=== PATIENT | male | born 1975 | race American Indian/Alaskan Native ===

== ENCOUNTER 2019-05-17 17:01 | Emergency (ER) | payer SELFPAY ==
[2019-05-17 17:32] VITALS: BP 103/67
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
== END 2019-05-17 19:35 | disposition home or self-care (01) ==
LOC: ED 17:01
DX: M54.5 Low back pain (principal); Z53.21 Procedure and treatment not carried out due to patient leaving prior to being seen by health care provider
CPT/HCPCS: 72100

== ENCOUNTER 2019-06-26 09:27 | Emergency (ER) | payer SELFPAY ==
--- NOTE | 2019-06-26 15:12 | Emergency Department Report ---
<DEN RANGEL - Last Filed: 06/26/19 15:57> ED General Adult HPI - General Chief complaint: Upper Respiratory Infection Stated complaint: CHEST PAIN/VOMIT/STOMACH PAIN Source: patient Mode of arrival: Ambulatory Limitations: No Limitations - History of Present Illness Initial comments: 44yo BM states that has been experiencing weakness, diarrhea, congestion and cough x 1 day. He further states that he has R lower back pain when coughs. Pt states that his niece has been sick with similar symptoms recently. -: Sudden Location: head, chest, abdomen Radiation: back Severity scale (0 -10): 6 Quality: aching Consistency: constant Improves with: none Worsens with: none Associated Symptoms: malaise Treatments Prior to Arrival: none - Related Data Previous Rx's Medication Instructions Recorded Last Taken Type Benzonatate [Tessalon Perles] 100 mg PO Q8HR PRN #20 capsule 06/26/19 Unknown Rx Ibuprofen [Motrin] 600 mg PO Q8H PRN #20 tablet 06/26/19 Unknown Rx Oseltamivir [Tamiflu] 75 mg PO BID #14 cap 06/26/19 Unknown Rx Allergies Allergy/AdvReac Type Severity Reaction Status Date / Time No Known Allergies Allergy Unverified 05/17/19 17:06 ED Review of Systems Comment: All other systems reviewed and negative Constitutional: see HPI Respiratory: see HPI Gastrointestinal: as per HPI ED Past Medical Hx - Past Medical History Previous Medical History?: No - Surgical History Past Surgical History?: No - Social History Smoking Status: Current Every Day Smoker Substance Use Type: None - Medications Home Medications: Home Medications Medication Instructions Recorded Confirmed Last Taken Type Benzonatate [Tessalon Perles] 100 mg PO Q8HR PRN #20 capsule 06/26/19 Unknown Rx Ibuprofen [Motrin] 600 mg PO Q8H PRN #20 tablet 06/26/19 Unknown Rx Oseltamivir [Tamiflu] 75 mg PO BID #14 cap 06/26/19 Unknown Rx ED Physical Exam - General Limitations: No Limitations General appearance: alert, in no apparent distress - Head Head exam: Present: atraumatic, normocephalic - Eye Eye exam: Present: PERRL, EOMI, conjunctival injection - ENT ENT exam: Present: normal orophraynx, mucous membranes moist, TM's normal bilaterally, other (trace clear discharge from nose) - Neck Neck exam: Present: normal inspection, full ROM. Absent: tenderness, lymphadenopathy - Respiratory Respiratory exam: Present: prolonged expiratory. Absent: respiratory distress, accessory muscle use - Cardiovascular Cardiovascular Exam: Present: regular rate, normal rhythm, normal heart sounds - GI/Abdominal GI/Abdominal exam: Present: soft. Absent: distended, tenderness - Rectal Rectal exam: Present: deferred - Extremities Exam Extremities exam: Present: normal inspection, full ROM. Absent: tenderness - Back Exam Back exam: Present: normal inspection, tenderness (R lower back with inspiration) - Neurological Exam Neurological exam: Present: alert, altered, oriented X3 - Psychiatric Psychiatric exam: Present: normal affect, normal mood. Absent: depressed - Skin Skin exam: Present: warm, intact, other (moist) ED Medical Decision Making - Radiology Data [facility] [address] [place] [address] XRay Report Signed Patient: LENO FIGUEROA MR#: [id number] : 1975 Acct:[id number] Age/Sex: 44 / M ADM Date: 06/26/19 Loc: ED Attending Dr: Ordering Physician: DEN RANGEL PA-C Date of Service: 06/26/19 Procedure(s): XR chest routine 2V Accession Number(s): [id number] cc: DEN RANGEL PA-C Fluoro Time In Minutes: CHEST 1 VIEW INDICATION / CLINICAL INFORMATION: SOB. COMPARISON: None available. FINDINGS: SUPPORT DEVICES: None. HEART / MEDIASTINUM: No significant abnormality. LUNGS / PLEURA: There is a faint 6 mm nodular density projecting right middle lobe.. No pneumothorax. No focal infiltrate is seen. The upper lung zones are clear. ADDITIONAL FINDINGS: No significant additional findings. IMPRESSION: 1. There is a faint 6 mm nodular density projecting in the right middle lobe. In the absence of prior imaging, chest CT is recommended to further evaluate. Signer Name: Magen Murray MD Signed: 06/26/2019 3:36 PM Workstation Name: [id number] Transcribed By: Dictated By: Magen Murray MD Electronically Authenticated By: Magen Murray MD Signed Date/Time: 06/26/19 1536 DD/ 1534 - Medical Decision Making 44yo BM states that has been experiencing weakness, diarrhea, congestion and cough x 1 day. He further states that he has R lower back pain when coughs. Pt states that his niece has been sick with similar symptoms recently. ED Disposition Clinical Impression: Influenza Disposition: DC-01 TO HOME OR SELFCARE Condition: Stable Instructions: Influenza (ED) Additional Instructions: Follow-up with a primary care and cloud operations engineer doctor in 2 days or if symptoms worsen and continue return to emergency room as soon as possible. Increased rest, hydration, and take Motrin/Tylenol as prescribed for fever episode. Prescriptions: Ibuprofen [Motrin] 600 mg PO Q8H PRN #20 tablet PRN Reason: Pain Oseltamivir [Tamiflu] 75 mg PO BID #14 cap Benzonatate [Tessalon Perles] 100 mg PO Q8HR PRN #20 capsule PRN Reason: Cough Referrals: SHARON SALINAS MD [Primary Care Provider] - 3-5 Days RHETT SAMUELS MD [Staff Physician] - 3-5 Days [facility] [Outside] - 3-5 Days Forms: Work/School Release Form(ED) <PERLA CAMARILLO - Last Filed: 06/26/19 19:58> ED Review of Systems ROS: Stated complaint: CHEST PAIN/VOMIT/STOMACH PAIN Other details as noted in HPI ED Course Vital Signs 06/26/19 06/26/19 10:51 19:49 Temperature 99.8 F H 98.1 F Pulse Rate 98 H 85 Respiratory 19 20 Rate Blood Pressure 148/93 Blood Pressure 142/87 [Left] O2 Sat by Pulse 100 100 Oximetry - Consultations Consultation #1: 06/26/19 19:53 Patient has been consulted with Dr. Lin about patient history, physical exam, and xray results and agrees for discharge instructions with follow-up. ED Medical Decision Making - Medical Decision Making Patient was originally seen by Den Rangel and was sent to me for a pending flu swab. As per NOEMÍ Crenshaw patient can be discharge for proper follow-up of lung nodular mass. He did state that he spoke to Dr. Lin and I also confirmed with Dr. Lin the patient can be discharged for follow-up. I will place patient on influenza due to symptoms just started yesterday. Patient was educated increase hydration and rest and to take Motrin as needed. Fever episodes. Patient was also instructed to Follow-up with a primary care and cloud operations engineer doctor in 2 days or if symptoms worsen and continue return to emergency room as soon as possible. At time of discharge, the patient does not seem toxic or ill in appearance. No acute signs of distress noted. Patient agrees to discharge treatment plan of care. No further questions noted by the patient. Critical care attestation.: If time is entered above; I have spent that time in minutes in the direct care of this critically ill patient, excluding procedure time. ED Disposition Is pt being admited?: No Does the pt Need Aspirin: No
[2019-06-26] MEDS ORDERED: ACETAMINOPHEN 325 MG/10.15 ML ORAL LIQD UNIT DOSE PO ONE (15:14)
--- NOTE | 2019-06-26 15:40 | XRay Report ---
CHEST 1 VIEW INDICATION / CLINICAL INFORMATION: SOB. COMPARISON: None available. FINDINGS: SUPPORT DEVICES: None. HEART / MEDIASTINUM: No significant abnormality. LUNGS / PLEURA: There is a faint 6 mm nodular density projecting right middle lobe.. No pneumothorax . No focal infiltrate is seen. The upper lung zones are clear. ADDITIONAL FINDINGS: No significant additional findings. IMPRESSION: 1. There is a faint 6 mm nodular density projecting in the right middle lobe. In the absence of prior imaging, chest CT is recommended to further evaluate. Signer Name: Magen Murray MD Signed: 06/26/2019 3:36 PM Workstation Name: [id number]
[2019-06-26] MEDS ORDERED: ACETAMINOPHEN 325 MG TAB ONE (15:45)
[2019-06-26] MEDS ORDERED: ACETAMINOPHEN 325 MG TAB PO ONE (15:55)
[2019-06-26 16:07] LABS: Bilirubin,Urine NEG (Negative); Blood,Urine SM (Negative); Color,Urine Yellow (Yellow); Urobilinogen,Urine < 2.0 mg/dL (<2.0)
[2019-06-26 19:50] VITALS: BP 142/87
== END 2019-06-26 20:15 | disposition home or self-care (01) ==
LOC: ED 09:27
DX: J11.1 Influenza due to unidentified influenza virus with other respiratory manifestations (principal); F17.200 Nicotine dependence, unspecified, uncomplicated; Z79.1 Long term (current) use of non-steroidal anti-inflammatories (NSAID); Z79.899 Other long term (current) drug therapy
CPT/HCPCS: 71046; 81001; 87400

== ENCOUNTER 2020-08-09 09:36 | Emergency (ER) | payer SELFPAY ==
--- NOTE | 2020-08-09 09:54 | Emergency Department Report ---
Blank Doc - Documentation Documentation: 45-year-old [place] male was emerge department complaining of a 2-day history of left upper quadrant abdominal pain which radiates across the abdomen associated with nausea. No hematuria no no dysuria no fever chills or sweats. This initial assessment/diagnostic orders/clinical plan/treatment(s) is/are subject to change based on patients health status, clinical progression and re- assessment by fellow clinical providers in the ED. Further treatment and workup at subsequent clinical providers discretion. Patient/guardian urged not to elope from the ED as their condition may be serious if not clinically assessed and managed. Initial orders include: Labs, urine, CT abdomen
[2020-08-09 10:41] LABS: Basophils % (Auto) 0.7 % (0.0-1.8); Eosinophils # (Auto) 0.2 K/mm3 (0.0-0.4); Eosinophils % (Auto) 3.4 % (0.0-4.3); Hematocrit 42.3 % (35.5-45.6); Hemoglobin 14.3 gm/dl (11.8-15.2); Lymphocytes # (Auto) 1.5 K/mm3 (1.2-5.4); Mean Corpuscular HGB Conc 34 % (32-34); Mean Corpuscular Volume 96 fl (84-94); Monocytes # (Auto) 0.6 K/mm3 (0.0-0.8); Monocytes % (Auto) 13.9 % (0.0-7.3); Platelet Count 195 K/mm3 (140-440); Red Blood Count 4.42 M/mm3 (3.65-5.03); Red Cell Distribution Width 14.6 % (13.2-15.2)
[2020-08-09 10:46] LABS: Bilirubin,Urine NEG (Negative); Blood,Urine SM (Negative); Color,Urine Amber (Yellow); Hyaline Casts,Urine 1 /LPF; Mucus,Urine 1+ /HPF
[2020-08-09 11:08] LABS: Alanine Aminotransferase 32 units/L (7-56); Albumin 4.7 g/dL (3.9-5); BUN/Creatinine Ratio 7; Blood Urea Nitrogen 6 mg/dL (9-20); Calcium 9.4 mg/dL (8.4-10.2); Hemolysis Index 7
[2020-08-09 11:09] LABS: Bilirubin,Direct < 0.2 mg/dL (0-0.2)
--- NOTE | 2020-08-09 11:23 | Emergency Department Report ---
ED General Adult HPI - General Chief complaint: Abdominal Pain Stated complaint: ABD PAIN/VOMITING Time Seen by Provider: 08/09/20 11:23 Source: patient Mode of arrival: Ambulatory Limitations: No Limitations - History of Present Illness Initial comments: Patient is a 45-year-old male with no past medical history presents to emergency department for evaluation of moderate crampy intermittent lower left and right quadrant pain x2 to 3 days associated with nausea and vomiting without diarrhea. Patient denies fever, denies dysuria. Severity scale (0 -10): 6 - Related Data Previous Rx's Medication Instructions Recorded Last Taken Type Benzonatate [Tessalon Perles] 100 mg PO Q8HR PRN #20 capsule 06/26/19 Unknown Rx Ibuprofen [Motrin] 600 mg PO Q8H PRN #20 tablet 06/26/19 Unknown Rx Oseltamivir [Tamiflu] 75 mg PO BID #14 cap 06/26/19 Unknown Rx Allergies Allergy/AdvReac Type Severity Reaction Status Date / Time No Known Allergies Allergy Unverified 05/17/19 17:06 ED Review of Systems ROS: Stated complaint: ABD PAIN/VOMITING Other details as noted in HPI Comment: All other systems reviewed and negative ED Past Medical Hx - Past Medical History Previous Medical History?: No - Surgical History Past Surgical History?: Yes Additional Surgical History: left foot - Social History Smoking Status: Current Every Day Smoker Substance Use Type: None - Medications Home Medications: Home Medications Medication Instructions Recorded Confirmed Last Taken Type Benzonatate [Tessalon Perles] 100 mg PO Q8HR PRN #20 capsule 06/26/19 Unknown Rx Ibuprofen [Motrin] 600 mg PO Q8H PRN #20 tablet 06/26/19 Unknown Rx Oseltamivir [Tamiflu] 75 mg PO BID #14 cap 06/26/19 Unknown Rx ED Physical Exam - General Limitations: No Limitations General appearance: alert, in no apparent distress - Head Head exam: Present: atraumatic, normocephalic - Eye Eye exam: Present: normal appearance - ENT ENT exam: Present: mucous membranes moist - Neck Neck exam: Present: normal inspection - Respiratory Respiratory exam: Present: normal lung sounds bilaterally. Absent: respiratory distress - Cardiovascular Cardiovascular Exam: Present: regular rate, normal rhythm. Absent: systolic murmur, diastolic murmur, rubs, gallop - GI/Abdominal GI/Abdominal exam: Present: soft, tenderness (Mild right lower quadrant tenderness, mild left lower quadrant tenderness) - Rectal Rectal exam: Present: deferred - Extremities Exam Extremities exam: Present: normal inspection - Back Exam Back exam: Present: normal inspection - Neurological Exam Neurological exam: Present: alert, oriented X3 - Psychiatric Psychiatric exam: Present: normal affect, normal mood - Skin Skin exam: Present: warm, dry, intact, normal color. Absent: rash ED Course Vital Signs 08/09/20 08/09/20 08/09/20 09:44 11:14 11:15 Temperature 98.2 F Pulse Rate 98 H Respiratory 20 18 18 Rate Blood Pressure 144/96 Blood Pressure 166/113 [Right] O2 Sat by Pulse 98 99 Oximetry 08/09/20 12:28 Temperature Pulse Rate 68 Respiratory Rate Blood Pressure Blood Pressure [Right] O2 Sat by Pulse Oximetry - Reevaluation(s) Reevaluation #1: Patient initially treated with IV normal saline, IV Toradol, IV Zofran. 08/09/20 12:49 Reevaluation #2: 08/09/20 12:49 On reevaluation, patient in no acute distress, now denies pain. Abdomen is soft and nontender, patient is tolerating p.o. at bedside, labs and CT reassuring. Patient advised to get outpatient Covid test ED Medical Decision Making - Lab Data Result diagrams: 08/09/20 10:09 08/09/20 10:09 Labs 08/09/20 08/09/20 08/09/20 10:00 10:09 10:09 WBC 4.4 L RBC 4.42 Hgb 14.3 Hct 42.3 MCV 96 H MCH 32 MCHC 34 RDW 14.6 Plt Count 195 Lymph % (Auto) 35.0 [place] % (Auto) 13.9 H Eos % (Auto) 3.4 Baso % (Auto) 0.7 Lymph # (Auto) 1.5 [place] # (Auto) 0.6 Eos # (Auto) 0.2 Baso # (Auto) 0.0 Seg Neutrophils % 47.0 Seg Neutrophils # 2.1 Sodium 134 L Potassium 4.1 Chloride 97.9 L Carbon Dioxide 26 Anion Gap 14 BUN 6 L Creatinine 0.9 Estimated GFR > 60 BUN/Creatinine Ratio 7 Glucose 161 H Calcium 9.4 Total Bilirubin 0.70 Direct Bilirubin < 0.2 AST 58 H ALT 32 Alkaline Phosphatase 87 Total Protein 7.9 Albumin 4.7 Albumin/Globulin Ratio 1.5 Lipase 48 Urine Color [place] Urine Turbidity Slightly-cloudy Urine pH 5.0 Ur Specific [place] 1.018 Urine Protein 100 mg/dl Urine Glucose (UA) Neg Urine Ketones Neg Urine Blood Sm Urine Nitrite Neg Urine Bilirubin Neg Urine Urobilinogen 4.0 Ur Leukocyte Esterase Neg Urine WBC (Auto) 5.0 Urine RBC (Auto) 3.0 U Epithel Cells (Auto) 1.0 Hyaline Casts 1 Urine Mucus 1+ Vital Signs 08/09/20 08/09/20 08/09/20 09:44 11:14 11:15 Temperature 98.2 F Pulse Rate 98 H Respiratory 20 18 18 Rate Blood Pressure 144/96 Blood Pressure 166/113 [Right] O2 Sat by Pulse 98 99 Oximetry 08/09/20 12:28 Temperature Pulse Rate 68 Respiratory Rate Blood Pressure Blood Pressure [Right] O2 Sat by Pulse Oximetry - Radiology Data Radiology results: report reviewed Findings [facility] [address] [place] [address] Cat Scan Report Signed Patient: LENO FIGUEROA MR#: [id number] : 1975 Acct:[id number] Age/Sex: 45 / M ADM Date: 08/09/20 Loc: ED Attending Dr: Ordering Physician: LACY ERAZO MD Date of Service: 08/09/20 Procedure(s): CT abdomen pelvis w con Accession Number(s): [id number] cc: LACY ERAZO MD CT ABDOMEN AND PELVIS WITH CONTRAST INDICATION / CLINICAL INFORMATION: RLQ pain. TECHNIQUE: Axial CT images were obtained through the abdomen and pelvis after an unspecified amount and type of IV contrast. All CT scans at this location are performed using CT dose reduction for ALARA by means of automated exposure control. COMPARISON: None available. FINDINGS: LOWER CHEST: No significant abnormality. LIVER: There is focal fatty infiltration along the falciform ligament. No other significant abnormality. GALLBLADDER: No significant abnormality. BILE DUCTS: No significant abnormality. PANCREAS: No significant abnormality. SPLEEN: No significant abnormality. ADRENALS: No significant abnormality. RIGHT KIDNEY / URETER: A simple right upper renal pole cyst measures 1 cm on image 46 of series 2. No other significant abnormality. LEFT KIDNEY / URETER: No significant abnormality. STOMACH / SMALL BOWEL: No significant abnormality. COLON: No significant abnormality. APPENDIX: No significant abnormality. PERITONEUM: No free fluid. No free air. No fluid collection. LYMPH NODES: No significant adenopathy. AORTA / ARTERIES: No significant abnormality. IVC / VEINS: No significant abnormality. URINARY BLADDER: No significant abnormality. REPRODUCTIVE ORGANS: No significant abnormality. ADDITIONAL FINDINGS: None. SKELETAL SYSTEM: No significant abnormality. IMPRESSION: No acute abnormality is seen to explain the patient's pain. Signer Name: Suresh Soto MD Signed: 08/09/2020 12:22 PM Workstation Name: [id number] Transcribed By: BRANDON Dictated By: Suresh Soto MD Electronically Authenticated By: Suresh Soto MD Signed Date/Time: 08/09/20 1222 DD/ 1216 TD/TT: Critical Care Time: No Critical care attestation.: If time is entered above; I have spent that time in minutes in the direct care of this critically ill patient, excluding procedure time. ED Disposition Clinical Impression: Abdominal pain, Nausea & vomiting Disposition: DC-01 TO HOME OR SELFCARE Is pt being admited?: No Condition: Stable Instructions: Nausea and Vomiting, Adult, Abdominal Pain, Adult, [id number] Referrals: PRIMARY CARE, [Primary Care Provider] - 3-5 Days
[2020-08-09] MEDS ORDERED: SODIUM CHLORIDE 0.9% 1000 ML 1,000 ML IV ONE (11:28)
[2020-08-09] MEDS ORDERED: KETOROLAC 30 MG/1 ML INJ IV ONE (11:28)
[2020-08-09] MEDS ORDERED: ONDANSETRON 4 MG/2 ML INJ IV ONE (11:29)
--- NOTE | 2020-08-09 12:26 | Cat Scan Report ---
CT ABDOMEN AND PELVIS WITH CONTRAST INDICATION / CLINICAL INFORMATION: RLQ pain. TECHNIQUE: Axial CT images were obtained through the abdomen and pelvis after an unspecified amount and type of IV contrast. All CT scans at this location are performed using CT dose reduction for ALARA by means of automated exposure control. COMPARISON: None available. FINDINGS: LOWER CHEST: No significant abnormality. LIVER: There is focal fatty infiltration along the falciform ligament. No other significant abnormali ty. GALLBLADDER: No significant abnormality. BILE DUCTS: No significant abnormality. PANCREAS: No significant abnormality. SPLEEN: No significant abnormality. ADRENALS: No significant abnormality. RIGHT KIDNEY / URETER: A simple right upper renal pole cyst measures 1 cm on image 46 of series 2. No other significant abnormality. LEFT KIDNEY / URETER: No significant abnormality. STOMACH / SMALL BOWEL: No significant abnormality. COLON: No significant abnormality. APPENDIX: No significant abnormality. PERITONEUM: No free fluid. No free air. No fluid collection. LYMPH NODES: No significant adenopathy. AORTA / ARTERIES: No significant abnormality. IVC / VEINS: No significant abnormality. URINARY BLADDER: No significant abnormality. REPRODUCTIVE ORGANS: No significant abnormality. ADDITIONAL FINDINGS: None. SKELETAL SYSTEM: No significant abnormality. IMPRESSION: No acute abnormality is seen to explain the patient's pain. Signer Name: Suresh Soto MD Signed: 08/09/2020 12:22 PM Workstation Name: [id number]
[2020-08-09 13:09] VITALS: BP 138/83
== END 2020-08-09 13:05 | disposition home or self-care (01) ==
LOC: ED 09:36
DX: R11.2 Nausea with vomiting, unspecified (principal); R10.9 Unspecified abdominal pain; F17.200 Nicotine dependence, unspecified, uncomplicated; Z79.899 Other long term (current) drug therapy; Z98.890 Other specified postprocedural states
CPT/HCPCS: 36415; 74177; 80048; 80076; 81001; 83690; 85025; 96361; 96374; 96375; 99284; J1885; J2405; J7030; Q9967

== ENCOUNTER 2020-12-22 07:06 | Emergency (ER) | payer SELFPAY | END 2020-12-22 08:10 | disposition left against medical advice (07) | LOC: ED 07:06 | DX: R05 Cough (principal); R11.0 Nausea; J02.9 Acute pharyngitis, unspecified; Z53.21 Procedure and treatment not carried out due to patient leaving prior to being seen by health care provider ==

== ENCOUNTER 2021-03-21 10:11 | Emergency (ER) | payer OTHER ==
[2021-03-21 10:35] VITALS: BP 134/92
--- NOTE | 2021-03-21 10:39 | Emergency Department Report ---
- General Chief Complaint: Upper Respiratory Infection Stated Complaint: COUGHING UP MUCUS Time Seen by Provider: 03/21/21 10:25 Source: patient Mode of arrival: Ambulatory Limitations: No Limitations - History of Present Illness Initial Comments: Patient is a 45-year-old male presents emergency room complaints of a cough that began 4 to 5 days ago. He states he has associated yellow mucus production. He states he has had some chills. He denies any fever, body aches, vomiting, diarrhea, shortness of breath, chest pain. Patient denies any past medical history. No allergies to medications. He is a current every day smoker and reports that 1 pack lasts him approximately 3 days. He reports that his job had him leave work today and he states that he needs a COVID-19 test. - Related Data Previous Rx's Medication Instructions Recorded Last Taken Type Benzonatate [Tessalon Perles] 100 mg PO Q8HR PRN #20 capsule 06/26/19 Unknown Rx Ibuprofen [Motrin] 600 mg PO Q8H PRN #20 tablet 06/26/19 Unknown Rx Oseltamivir [Tamiflu] 75 mg PO BID #14 cap 06/26/19 Unknown Rx Benzonatate [Tessalon Perles] 100 mg PO Q8HR PRN #12 capsule 03/21/21 Unknown Rx guaiFENesin ER [Mucinex ER] 600 mg PO Q12H #14 tablet.er 03/21/21 Unknown Rx Allergies Allergy/AdvReac Type Severity Reaction Status Date / Time No Known Allergies Allergy Verified 03/21/21 10:35 ED Review of Systems ROS: Stated complaint: COUGHING UP MUCUS Other details as noted in HPI Comment: All other systems reviewed and negative ED Past Medical Hx - Past Medical History Previous Medical History?: No - Surgical History Additional Surgical History: left foot - Social History Smoking Status: Current Every Day Smoker - Medications Home Medications: Home Medications Medication Instructions Recorded Confirmed Last Taken Type Benzonatate [Tessalon Perles] 100 mg PO Q8HR PRN #20 capsule 06/26/19 Unknown Rx Ibuprofen [Motrin] 600 mg PO Q8H PRN #20 tablet 06/26/19 Unknown Rx Oseltamivir [Tamiflu] 75 mg PO BID #14 cap 06/26/19 Unknown Rx Benzonatate [Tessalon Perles] 100 mg PO Q8HR PRN #12 capsule 03/21/21 Unknown Rx guaiFENesin ER [Mucinex ER] 600 mg PO Q12H #14 tablet.er 03/21/21 Unknown Rx ED Physical Exam - General Limitations: No Limitations General appearance: alert, in no apparent distress - Head Head exam: Present: atraumatic, normocephalic - Eye Eye exam: Present: normal appearance - ENT ENT exam: Present: mucous membranes moist - Respiratory Respiratory exam: Present: normal lung sounds bilaterally. Absent: respiratory distress, wheezes, rales, rhonchi, stridor, chest wall tenderness, accessory muscle use, decreased breath sounds, prolonged expiratory - Cardiovascular Cardiovascular Exam: Present: regular rate, normal rhythm, normal heart sounds. Absent: systolic murmur, diastolic murmur, rubs, gallop - Neurological Exam Neurological exam: Present: alert, oriented X3 - Psychiatric Psychiatric exam: Present: normal affect, normal mood - Skin Skin exam: Present: warm, dry, intact ED Course Vital Signs 03/21/21 10:34 Temperature 98.3 F Pulse Rate 98 H Respiratory 16 Rate Blood Pressure 134/92 [Right] O2 Sat by Pulse 97 Oximetry ED Medical Decision Making - Radiology Data Radiology results: report reviewed Ordering Physician: NOEMÍ VINES Date of Service: 03/21/21 Procedure(s): XR chest routine 2V Accession Number(s): [id number] cc: NOEMÍ VINES Fluoro Time In Minutes: CHEST 2 VIEWS INDICATION / CLINICAL INFORMATION: cough with mucus production, + smoker. COMPARISON: 06/26/2019 FINDINGS: SUPPORT DEVICES: None. HEART / MEDIASTINUM: No significant abnormality. LUNGS / PLEURA: Stable hyperaeration without appreciable acute abnormality. ADDITIONAL FINDINGS: No significant additional findings. IMPRESSION: 1. No acute findings. No significant change from the prior study. Signer Name: Mohan Whyte MD Signed: 03/21/2021 10:54 AM Workstation Name: [id number] Transcribed By: NEAL Dictated By: Mohan Whyte MD Electronically Authenticated By: Mohan Whyte MD Signed Date/Time: 03/21/21 1054 DD/ 1053 TD/TT: - Medical Decision Making Patient is a 45-year-old male presents emergency room complaints of a cough that began 4 to 5 days ago. He states he has associated yellow mucus production. He states he has had some chills. He denies any fever, body aches, vomiting, diarrhea, shortness of breath, chest pain. Patient denies any past medical history. No allergies to medications. He is a current every day smoker and reports that 1 pack lasts him approximately 3 days. He reports that his job had him leave work today and he states that he needs a COVID-19 test. Vitals are stable. Breath sounds are clear bilaterally, no wheezing, no rales, no rhonchi. Chest x-ray:1. No acute findings. No significant change from the prior study. Patient is well-appearing on exam. Symptoms likely related to URI. Patient given prescription for medication. Discussed the importance of outpatient follow-up. Discussed smoking cessation with patient and the risk associated with long-term tobacco use. Advised patient Please take medication as prescribed. Increase your fluid intake. Follow-up with a primary care doctor. Return to emergency room for any new or worsening symptoms. Recommend for you to get outpatient COVID-19 testing and if positive to self quarantine for 10 days from the onset of your symptoms. Critical care attestation.: If time is entered above; I have spent that time in minutes in the direct care of this critically ill patient, excluding procedure time. ED Disposition Clinical Impression: Tobacco abuse counseling Upper respiratory infection Qualifiers: URI type: unspecified URI Qualified Code(s): J06.9 - Acute upper respiratory infection, unspecified Disposition: 01 HOME / SELF CARE / HOMELESS Is pt being admited?: No Does the pt Need Aspirin: No Condition: Stable Instructions: Health Risks of Smoking, Viral Respiratory Infection Additional Instructions: Please take medication as prescribed. Increase your fluid intake. Follow-up with a primary care doctor. Return to emergency room for any new or worsening symptoms. Recommend for you to get outpatient COVID-19 testing and if positive to self quarantine for 10 days from the onset of your symptoms. Prescriptions: guaiFENesin ER [Mucinex ER] 600 mg PO Q12H #14 tablet.er Benzonatate [Tessalon Perles] 100 mg PO Q8HR PRN #12 capsule PRN Reason: cough Referrals: SHARON SALINAS MD [Primary Care Provider] - 2-3 Days RHETT SAMUELS MD [Staff Physician] - 2-3 Days [facility] [Provider Group] - 2-3 Days Forms: Work/School Release Form(ED) Time of Disposition: 11:13 Print Language: CAPE VERDEAN
--- NOTE | 2021-03-21 10:58 | XRay Report ---
CHEST 2 VIEWS INDICATION / CLINICAL INFORMATION: cough with mucus production, + smoker. COMPARISON: 06/26/2019 FINDINGS: SUPPORT DEVICES: None. HEART / MEDIASTINUM: No significant abnormality. LUNGS / PLEURA: Stable hyperaeration without appreciable acute abnormality. ADDITIONAL FINDINGS: No significant additional findings. IMPRESSION: 1. No acute findings. No significant change from the prior study. Signer Name: Mohan Whyte MD Signed: 03/21/2021 10:54 AM Workstation Name: [id number]
== END 2021-03-21 11:29 | disposition home or self-care (01) ==
LOC: ED 10:11
DX: J06.9 Acute upper respiratory infection, unspecified (principal); F17.200 Nicotine dependence, unspecified, uncomplicated; Z71.6 Tobacco abuse counseling; Z79.899 Other long term (current) drug therapy
CPT/HCPCS: 71046; 99283

== ENCOUNTER 2021-10-07 07:57 | Emergency (ER) | payer SELFPAY ==
--- NOTE | 2021-10-07 10:04 | XRay Report ---
Lumbar spine 3 views INDICATION: Flank pain FINDINGS: Minimal wedging of L1 and T12. Alignment appears normal. Facet changes at L4-5 and L5-S1. S acrum appears intact. IMPRESSION: Minimal wedging of T12 and L1. Signer Name: Samir Curran MD Signed: 10/07/2021 9:59 AM Workstation Name: [email or web address]
--- NOTE | 2021-10-07 10:19 | Emergency Department Report ---
ED Back Pain/Injury HPI - General Chief Complaint: Back Pain/Injury Stated Complaint: LOWER BACK PAIN Source: patient Limitations: No Limitations - History of Present Illness Initial Comments: 46-year-old male presents to the ED complaining of low back pain x4 days. Patient states that pain is 5 out of 10. Patient states pain is worsen with movement. 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 Patient denies any dysuria. He denies any radiation with pain. Patient is alert and oriented x3. Patient denies any trauma, unexplained weight loss, any fever IV drug use or steroid use. Patient states no known medical history. No acute distress noted .No ill appearance noted MD Complaint: back pain Severity: moderate Severity scale (0 -10): 5 Quality: aching Consistency: intermittent Improves With: none Worsens With: none Associated Symptoms: denies other symptoms - Related Data Previous Rx's Medication Instructions Recorded Last Taken Type Benzonatate [Tessalon Perles] 100 mg PO Q8HR PRN #20 capsule 06/26/19 Unknown Rx Ibuprofen [Motrin] 600 mg PO Q8H PRN #20 tablet 06/26/19 Unknown Rx Oseltamivir [Tamiflu] 75 mg PO BID #14 cap 06/26/19 Unknown Rx Benzonatate [Tessalon Perles] 100 mg PO Q8HR PRN #12 capsule 03/21/21 Unknown Rx guaiFENesin ER [Mucinex ER] 600 mg PO Q12H #14 tablet.er 03/21/21 Unknown Rx Naproxen [Naprosyn] 500 mg PO BID 15 Days #30 tablet 10/07/21 Unknown Rx levoFLOXacin [Levaquin] 750 mg PO QDAY 7 Days #7 tablet 10/07/21 Unknown Rx methOCARBAMOL [Robaxin TAB] 750 mg PO Q8H PRN 15 Days #30 tab 10/07/21 Unknown Rx Allergies Allergy/AdvReac Type Severity Reaction Status Date / Time No Known Allergies Allergy Verified 03/21/21 10:35 ED Review of Systems ROS: Stated complaint: LOWER BACK PAIN Other details as noted in HPI Constitutional: denies: chills, fever Eyes: denies: eye pain, eye discharge, vision change ENT: denies: ear pain, throat pain Respiratory: denies: cough, shortness of breath, wheezing Cardiovascular: denies: chest pain, palpitations Endocrine: no symptoms reported Gastrointestinal: denies: abdominal pain, nausea, diarrhea Genitourinary: denies: urgency, dysuria Musculoskeletal: back pain. denies: joint swelling, arthralgia Skin: denies: rash, lesions Neurological: denies: headache, weakness, paresthesias Psychiatric: denies: anxiety, depression Hematological/Lymphatic: denies: easy bleeding, easy bruising ED Past Medical Hx - Surgical History Additional Surgical History: left foot - Social History Smoking Status: Current Every Day Smoker - Medications Home Medications: Home Medications Medication Instructions Recorded Confirmed Last Taken Type Benzonatate [Tessalon Perles] 100 mg PO Q8HR PRN #20 capsule 06/26/19 Unknown Rx Ibuprofen [Motrin] 600 mg PO Q8H PRN #20 tablet 06/26/19 Unknown Rx Oseltamivir [Tamiflu] 75 mg PO BID #14 cap 06/26/19 Unknown Rx Benzonatate [Tessalon Perles] 100 mg PO Q8HR PRN #12 capsule 03/21/21 Unknown Rx guaiFENesin ER [Mucinex ER] 600 mg PO Q12H #14 tablet.er 03/21/21 Unknown Rx Naproxen [Naprosyn] 500 mg PO BID 15 Days #30 tablet 10/07/21 Unknown Rx levoFLOXacin [Levaquin] 750 mg PO QDAY 7 Days #7 tablet 10/07/21 Unknown Rx methOCARBAMOL [Robaxin TAB] 750 mg PO Q8H PRN 15 Days #30 tab 10/07/21 Unknown Rx ED Physical Exam - General Limitations: No Limitations General appearance: alert, in no apparent distress - Head Head exam: Present: atraumatic, normocephalic - Eye Eye exam: Present: normal appearance - ENT ENT exam: Present: mucous membranes moist - Neck Neck exam: Present: normal inspection - Respiratory Respiratory exam: Present: normal lung sounds bilaterally. Absent: respiratory distress - Cardiovascular Cardiovascular Exam: Present: regular rate, normal rhythm. Absent: systolic murmur, diastolic murmur, rubs, gallop - GI/Abdominal GI/Abdominal exam: Present: soft, normal bowel sounds - Rectal Rectal exam: Present: deferred - Extremities Exam Extremities exam: Present: normal inspection - Back Exam Back exam: Present: normal inspection - Neurological Exam Neurological exam: Present: alert, oriented X3 - Psychiatric Psychiatric exam: Present: normal affect, normal mood - Skin Skin exam: Present: warm, dry, intact, normal color. Absent: rash ED Course Vital Signs 10/07/21 10/07/21 08:25 12:05 Temperature 98.5 F Pulse Rate 67 70 Respiratory 18 16 Rate Blood Pressure 129/90 122/86 [Right] O2 Sat by Pulse 98 99 Oximetry ED Medical Decision Making - Radiology Data [facility] [address] [place] [address] XRay Report Signed Patient: LENO FIGUEROA MR#: [id number] : 1975 Acct:[id number] Age/Sex: 46 / M ADM Date: 10/07/21 Loc: ED Attending Dr: Ordering Physician: KATI ANGUIANO Date of Service: 10/07/21 Procedure(s): XR spine lumbosacral 2-3V Accession Number(s): [id number] cc: KATI ANGUIANO Fluoro Time In Minutes: Lumbar spine 3 views INDICATION: Flank pain FINDINGS: Minimal wedging of L1 and T12. Alignment appears normal. Facet changes at L4-5 and L5-S1. Sacrum appears intact. IMPRESSION: Minimal wedging of T12 and L1. Signer Name: Samir Curran MD Signed: 10/07/2021 9:59 AM Workstation Name: [id number] Transcribed By: Dictated By: MATTHEW CURRAN MD Electronically Authenticated By: MATTHEW CURRAN MD Signed Date/Time: 10/07/21958 DD/ 8 TD/TT: - Medical Decision Making 46-year-old male presents to the ED complaining of low back pain x4 days. Patient states that pain is 5 out of 10. Patient states pain is worsen with movement. 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 Patient denies any dysuria. He denies any radiation with pain. Patient is alert and oriented x3. Patient denies any trauma, unexplained weight loss, any fever IV drug use or steroid use. Patient states no known medical history. No acute distress noted .No ill appearance noted. 2 view Lumbar sacral show;IMPRESSION: Minimal wedging of T12 and L1. Physical examination patient has spinal tenderness noted. Patient UA show patient has instructed to use good body mechanics when lifting refrigerator . Positive for Urinary Tract Infection. Rechecked the patient is resting quietly quietly and comfortable and feeling better. I discussed the results of diagnostic study, my clinical impression and the plan for further treatment with the patient. Patient agrees with plan and discharge at this present time. All question addressed. I have given the patient instruction regarding a diagnosis ,expectation ,follow- up and return precaution. I explained to the patient that emergent condition may arise and to return to the ED for new worsen and any new persisting condition. I have explained the importance of following up with the primary care physician or referral physician listed below has instructed. The patient verbalized understanding of discharge instruction. Abnormal Lab Results 10/07/21 Unknown Urine Color Dark yellow Urine Turbidity Hazy Urine pH 6.0 Ur Specific Emery 1.025 Urine Protein 100 mg/dl Urine Glucose (UA) Negative Urine Ketones Trace Urine Blood Small A Urine Nitrite Negative Ur Reducing Substances Not Reportable Urine Bilirubin Negative Urine Ictotest Not Reportable Urine Urobilinogen < 2.0 Ur Leukocyte Esterase Negative Urine WBC (Auto) 9.0 H Urine RBC (Auto) 5.0 U Epithel Cells (Auto) 2.0 Hyaline Casts 1 Urine Mucus Few Critical care attestation.: If time is entered above; I have spent that time in minutes in the direct care of this critically ill patient, excluding procedure time. ED Disposition Clinical Impression: Acute urinary tract infection Low back pain Qualifiers: Chronicity: acute Back pain laterality: bilateral Sciatica presence: without sciatica Qualified Code(s): M54.50 - Low back pain, unspecified Disposition: 01 HOME / SELF CARE / HOMELESS Is pt being admited?: No Does the pt Need Aspirin: No Condition: Stable Instructions: Acute Back Pain, Adult, Urinary Tract Infection, Adult, [id number] Additional Instructions: Take medication as take medication as prescribed Return to the ED for any worsening symptom Prescriptions: levoFLOXacin [Levaquin] 750 mg PO QDAY 7 Days #7 tablet Naproxen [Naprosyn] 500 mg PO BID 15 Days #30 tablet methOCARBAMOL [Robaxin TAB] 750 mg PO Q8H PRN 15 Days #30 tab PRN Reason: Pain, Mild (1-3) Referrals: PRIMARY CARE, [Primary Care Provider] - 3-5 Days [facility] [Provider Group] - 3-5 Days HU CHANDLER MD [Staff Physician] - 3-5 Days Forms: Work/School Release Form(ED)
[2021-10-07 11:20] LABS: Hyaline Casts,Urine 1 /LPF; Mucus,Urine FEW /HPF
[2021-10-07 11:28] LABS: Bilirubin,Urine Negative (Negative); Color,Urine Dark Yellow (Yellow)
[2021-10-07 11:29] LABS: Blood,Urine Small (Negative); Urobilinogen,Urine < 2.0 mg/dL (<2.0)
[2021-10-07 12:06] VITALS: BP 122/86
== END 2021-10-07 12:06 | disposition home or self-care (01) ==
LOC: ED 07:57
DX: N39.0 Urinary tract infection, site not specified (principal); M54.50 Low back pain, unspecified; F17.200 Nicotine dependence, unspecified, uncomplicated; Z79.899 Other long term (current) drug therapy
CPT/HCPCS: 72100; 81001; 87086; 99283

== ENCOUNTER 2021-11-06 16:33 | Emergency (ER) | payer SELFPAY ==
[2021-11-06 16:36] VITALS: BP 143/102
== END 2021-11-06 18:40 | disposition left against medical advice (07) ==
LOC: ED 16:33
DX: R52 Pain, unspecified (principal); Z53.21 Procedure and treatment not carried out due to patient leaving prior to being seen by health care provider

== ENCOUNTER 2021-11-07 16:45 | Emergency (ER) | payer SELFPAY ==
[2021-11-07] MEDS ORDERED: ASPIRIN 325 MG TAB PO ONE (16:52)
--- NOTE | 2021-11-07 17:26 | XRay Report ---
CHEST 2 VIEWS INDICATION / CLINICAL INFORMATION: chest pain. COMPARISON: 03/21/2021 FINDINGS: SUPPORT DEVICES: None. HEART / MEDIASTINUM: No significant abnormality. LUNGS / PLEURA: No significant pulmonary or pleural abnormality. No pneumothorax. ADDITIONAL FINDINGS: Small nodular densities are seen in bilateral lungs IMPRESSION: 1. Small nodular densities in bilateral lungs could represent granulomas changes however if there is a smoking history a baseline CT may be helpful. No acute findings. Signer Name: Samir Curran MD Signed: 11/07/2021 5:21 PM Workstation Name: [id number]
[2021-11-07 18:02] LABS: Alanine Aminotransferase 124 units/L (7-56); Albumin 5.3 g/dL (3.9-5); BUN/Creatinine Ratio 13; Blood Urea Nitrogen 13 mg/dL (9-20); Calcium 9.3 mg/dL (8.4-10.2); Hemolysis Index 12
[2021-11-07 18:26] LABS: Basophils % (Auto) 0.4 % (0.0-1.8); Eosinophils % (Auto) 0.1 % (0.0-4.3); Hematocrit 42.1 % (35.5-45.6); Hemoglobin 13.9 gm/dl (11.8-15.2); Lymphocytes # (Auto) 0.8 K/mm3 (1.2-5.4); Lymphocytes % (Auto) 18.8 % (13.4-35.0); Mean Corpuscular HGB Conc 33 % (32-34); Mean Corpuscular Volume 99 fl (84-94); Monocytes # (Auto) 0.2 K/mm3 (0.0-0.8); Monocytes % (Auto) 4.7 % (0.0-7.3); Red Blood Count 4.23 M/mm3 (3.65-5.03); Red Cell Distribution Width 15.5 % (13.2-15.2)
[2021-11-07 18:27] LABS: Platelet Count 51 K/mm3 (140-440)
[2021-11-07] MEDS ORDERED: MORPHINE 4 MG/1 ML INJ IV ONE (23:45)
[2021-11-07] MEDS ORDERED: FAMOTIDINE 20 MG/2 ML INJ IV ONE (23:45)
[2021-11-07] MEDS ORDERED: KETOROLAC 30 MG/1 ML INJ IV ONE (23:45)
[2021-11-07] MEDS ORDERED: ONDANSETRON 4 MG/2 ML INJ IV ONE (23:45)
--- NOTE | 2021-11-08 00:58 | Cat Scan Report ---
CT CHEST, ABDOMEN, AND PELVIS WITH CONTRAST INDICATION / CLINICAL INFORMATION: LEFT LATERAL CHEST PAIN. TECHNIQUE: Axial CT images were obtained through the chest, abdomen, and pelvis after 100 cc of Omnip aque [address] scans at this location are performed using CT dose reduction for ALARA b y means of automated exposure control. COMPARISON: 08/09/2020 FINDINGS: CHEST: HEART: No significant abnormality. CORONARY ARTERY CALCIFICATION: None. THORACIC AORTA: No significant abnormality. MEDIASTINUM / KAITLIN: No significant abnormality. PLEURA: No pleural effusion. No pneumothorax. LUNGS: No acute air space or interstitial disease. Bullous disease. There is a 5 mm solid pulmonary n odule within the right middle lobe (series 2 image 75). ADDITIONAL CHEST FINDINGS: None. ABDOMEN/PELVIS: AORTA / ARTERIES: No significant abnormality. IVC / VEINS: No significant abnormality. LYMPH NODES: No significant adenopathy. COLON: No significant abnormality. APPENDIX: No significant abnormality. STOMACH / SMALL BOWEL: No significant abnormality. PERITONEUM: No free fluid. No free air. No fluid collection. LIVER: Hepatic steatosis. No focal lesion. GALLBLADDER: No significant abnormality. BILE DUCTS: No significant abnormality. PANCREAS: No significant abnormality. SPLEEN: No significant abnormality. ADRENALS: No significant abnormality. RIGHT KIDNEY / URETER: Right renal cyst. No hydronephrosis. LEFT KIDNEY / URETER: No significant abnormality. URINARY BLADDER: No significant abnormality. REPRODUCTIVE ORGANS: No significant abnormality. SKELETAL SYSTEM: Acute nondisplaced fractures of the posterior left ninth and 10th ribs. ADDITIONAL FINDINGS: None. IMPRESSION: 1. Acute nondisplaced fractures of the posterior left ninth and 10th ribs. 2. No acute intra-abdominal or intrapelvic pathology. 3. Single incidental pulmonary nodule(s) in the right middle lobe measuring 5 mm with solid character istics. Recommendation according to Fleischner Society 2017 Guidelines: Low Risk Patient: No routine follow-up; High Risk Patient: Optional CT at 12 months. Signer Name: Naresh Thacker DO Signed: 11/08/2021 12:53 AM Workstation Name: [id number]
--- NOTE | 2021-11-08 01:41 | Emergency Department Report ---
ED General Adult HPI - General Chief complaint: Chest Pain Stated complaint: LT SIDE PAIN Source: EMS Mode of arrival: Stretcher Limitations: No Limitations - History of Present Illness Initial comments: Patient is a 46-year-old -[place] male with no past medical history presents to the ED with complaint of acute onset persistent left lateral rib pain and chest wall pain with shortness of breath and diffuse abdominal pain for the last 2 weeks. Patient states that the pain is constant and persistent with movement or deep inhalation. Patient denies fall, traumatic injury, heavy lifting, nausea and vomiting or diarrhea, dizziness, syncope, cough, hemoptysis, low back pain, numbness and tingling or weakness of upper and lower extremities bilaterally or headache and neck pain MD Complaint: Left lateral rib pain, nausea and vomiting; abdominal pain -: Sudden, week(s) (2) Location: chest (leftlateral), abdomen Radiation: back, periumbillical Severity scale (0 -10): 8 Quality: aching, sharp Consistency: constant Improves with: none Worsens with: movement Associated Symptoms: denies other symptoms, chest pain, nausea/vomiting, shortness of breath. denies: confusion, cough, diaphoresis, fever/chills (Left lateral rib pain), headaches, loss of appetite, malaise, rash, seizure, syncope, weakness Treatments Prior to Arrival: none - Related Data Previous Rx's Medication Instructions Recorded Last Taken Type Benzonatate [Tessalon Perles] 100 mg PO Q8HR PRN #20 capsule 06/26/19 Unknown Rx Ibuprofen [Motrin] 600 mg PO Q8H PRN #20 tablet 06/26/19 Unknown Rx Oseltamivir [Tamiflu] 75 mg PO BID #14 cap 06/26/19 Unknown Rx Benzonatate [Tessalon Perles] 100 mg PO Q8HR PRN #12 capsule 03/21/21 Unknown Rx guaiFENesin ER [Mucinex ER] 600 mg PO Q12H #14 tablet.er 03/21/21 Unknown Rx Naproxen [Naprosyn] 500 mg PO BID 15 Days #30 tablet 10/07/21 Unknown Rx levoFLOXacin [Levaquin] 750 mg PO QDAY 7 Days #7 tablet 10/07/21 Unknown Rx methOCARBAMOL [Robaxin TAB] 750 mg PO Q8H PRN 15 Days #30 tab 10/07/21 Unknown Rx Ibuprofen [Motrin] 800 mg PO Q8HR PRN #30 tablet 11/08/21 Unknown Rx methOCARBAMOL [Robaxin TAB] 750 mg PO Q8H PRN #30 tab 11/08/21 Unknown Rx traMADoL [Ultram] 50 mg PO Q6HR PRN #12 tablet 11/08/21 Unknown Rx Allergies Allergy/AdvReac Type Severity Reaction Status Date / Time No Known Allergies Allergy Verified 11/06/21 16:36 ED Review of Systems ROS: Stated complaint: LT SIDE PAIN Other details as noted in HPI Constitutional: denies: chills, fever Eyes: denies: eye pain, eye discharge, vision change ENT: denies: ear pain, throat pain Respiratory: shortness of breath. denies: cough, wheezing Cardiovascular: chest pain (Left lateral rib pain). denies: palpitations Endocrine: no symptoms reported Gastrointestinal: denies: abdominal pain, nausea, vomiting, diarrhea Genitourinary: denies: urgency, dysuria Musculoskeletal: denies: back pain, joint swelling, arthralgia Skin: denies: rash, lesions Neurological: denies: headache, weakness, paresthesias Psychiatric: denies: anxiety, depression Hematological/Lymphatic: denies: easy bleeding, easy bruising ED Past Medical Hx - Surgical History Additional Surgical History: left foot - Social History Smoking Status: Current Every Day Smoker - Medications Home Medications: Home Medications Medication Instructions Recorded Confirmed Last Taken Type Benzonatate [Tessalon Perles] 100 mg PO Q8HR PRN #20 capsule 06/26/19 Unknown Rx Ibuprofen [Motrin] 600 mg PO Q8H PRN #20 tablet 06/26/19 Unknown Rx Oseltamivir [Tamiflu] 75 mg PO BID #14 cap 06/26/19 Unknown Rx Benzonatate [Tessalon Perles] 100 mg PO Q8HR PRN #12 capsule 03/21/21 Unknown Rx guaiFENesin ER [Mucinex ER] 600 mg PO Q12H #14 tablet.er 03/21/21 Unknown Rx Naproxen [Naprosyn] 500 mg PO BID 15 Days #30 tablet 10/07/21 Unknown Rx levoFLOXacin [Levaquin] 750 mg PO QDAY 7 Days #7 tablet 10/07/21 Unknown Rx methOCARBAMOL [Robaxin TAB] 750 mg PO Q8H PRN 15 Days #30 tab 10/07/21 Unknown Rx Ibuprofen [Motrin] 800 mg PO Q8HR PRN #30 tablet 11/08/21 Unknown Rx methOCARBAMOL [Robaxin TAB] 750 mg PO Q8H PRN #30 tab 11/08/21 Unknown Rx traMADoL [Ultram] 50 mg PO Q6HR PRN #12 tablet 11/08/21 Unknown Rx ED Physical Exam - General Limitations: No Limitations General appearance: alert, in no apparent distress - Head Head exam: Present: atraumatic, normocephalic, normal inspection - Eye Eye exam: Present: normal appearance, PERRL, EOMI Pupils: Present: normal accommodation - ENT ENT exam: Present: normal exam, normal orophraynx, mucous membranes moist, TM's normal bilaterally, normal external ear exam - Neck Neck exam: Present: normal inspection, full ROM. Absent: tenderness - Respiratory Respiratory exam: Present: normal lung sounds bilaterally, chest wall tenderness (Palpable left lateral rib and chest wall tenderness). Absent: respiratory distress, wheezes, rales, rhonchi, accessory muscle use, decreased breath sounds, prolonged expiratory - Cardiovascular Cardiovascular Exam: Present: regular rate, normal rhythm, normal heart sounds. Absent: systolic murmur, diastolic murmur, rubs, gallop - GI/Abdominal GI/Abdominal exam: Present: soft, normal bowel sounds. Absent: tenderness, guarding, rebound, hyperactive bowel sounds, hypoactive bowel sounds, mass - Extremities Exam Extremities exam: Present: normal inspection, full ROM, normal capillary refill. Absent: tenderness - Back Exam Back exam: Present: normal inspection, full ROM. Absent: tenderness, CVA tenderness (R), CVA tenderness (L), muscle spasm, paraspinal tenderness, vertebral tenderness - Neurological Exam Neurological exam: Present: alert, oriented X3, CN II-XII intact, normal gait, reflexes normal - Psychiatric Psychiatric exam: Present: normal affect, normal mood - Skin Skin exam: Present: warm, dry, intact, normal color. Absent: rash ED Course Vital Signs 11/07/21 16:50 Temperature 98.4 F Pulse Rate 92 H Respiratory 20 Rate Blood Pressure 154/94 [Right] O2 Sat by Pulse 100 Oximetry ED Medical Decision Making - Lab Data Result diagrams: 11/07/21 16:57 11/07/21 16:57 - Radiology Data Radiology results: report reviewed, image reviewed [facility] [address] [place] [address] Cat Scan Report Signed Patient: LENO FIGUEROA MR#: [id number] : 1975 Acct:[id number] Age/Sex: 46 / M ADM Date: 11/07/21 Loc: ED Attending Dr: Ordering Physician: NOEMÍ MONSALVE Date of Service: 11/07/21 Procedure(s): CT chest w con Accession Number(s): [id number] cc: NOEMÍ MONSALVE CT CHEST, ABDOMEN, AND PELVIS WITH CONTRAST INDICATION / CLINICAL INFORMATION: LEFT LATERAL CHEST PAIN. TECHNIQUE: Axial CT images were obtained through the chest, abdomen, and pelvis after 100 cc of Omnipaque [address] scans at this location are performed using CT dose reduction for ALARA by means of automated exposure control. COMPARISON: 08/09/2020 FINDINGS: CHEST: HEART: No significant abnormality. CORONARY ARTERY CALCIFICATION: None. THORACIC AORTA: No significant abnormality. MEDIASTINUM / KAITLIN: No significant abnormality. PLEURA: No pleural effusion. No pneumothorax. LUNGS: No acute air space or interstitial disease. Bullous disease. There is a 5 mm solid pulmonary nodule within the right middle lobe (series 2 image 75). ADDITIONAL CHEST FINDINGS: None. ABDOMEN/PELVIS: AORTA / ARTERIES: No significant abnormality. IVC / VEINS: No significant abnormality. LYMPH NODES: No significant adenopathy. COLON: No significant abnormality. APPENDIX: No significant abnormality. STOMACH / SMALL BOWEL: No significant abnormality. PERITONEUM: No free fluid. No free air. No fluid collection. LIVER: Hepatic steatosis. No focal lesion. GALLBLADDER: No significant abnormality. BILE DUCTS: No significant abnormality. PANCREAS: No significant abnormality. SPLEEN: No significant abnormality. ADRENALS: No significant abnormality. RIGHT KIDNEY / URETER: Right renal cyst. No hydronephrosis. LEFT KIDNEY / URETER: No significant abnormality. URINARY BLADDER: No significant abnormality. REPRODUCTIVE ORGANS: No significant abnormality. SKELETAL SYSTEM: Acute nondisplaced fractures of the posterior left ninth and 10th ribs. ADDITIONAL FINDINGS: None. IMPRESSION: 1. Acute nondisplaced fractures of the posterior left ninth and 10th ribs. 2. No acute intra-abdominal or intrapelvic pathology. 3. Single incidental pulmonary nodule(s) in the right middle lobe measuring 5 mm with solid characteristics. Recommendation according to Fleischner Society 2017 Guidelines: Low Risk Patient: No routine follow-up; High Risk Patient: Optional CT at 12 months. Signer Name: Naresh Chavez DO Signed: 11/08/2021 12:53 AM Workstation Name: [id number] Transcribed By: NS Dictated By: NARESH CHAVEZ DO Electronically Authenticated By: NARESH CHAVEZ DO Signed Date/Time: 11/08/2152 DD/ TD/TT: [facility] [address] [place] [address] Cat Scan Report Signed Patient: LENO FIGUEROA MR#: [id number] : 1975 Acct:[id number] Age/Sex: 46 / M ADM Date: 11/07/21 Loc: ED Attending Dr: Ordering Physician: NOEMÍ MONSALVE Date of Service: 11/07/21 Procedure(s): CT abdomen pelvis w con Accession Number(s): [id number] cc: NOEMÍ MONSALVE CT CHEST, ABDOMEN, AND PELVIS WITH CONTRAST INDICATION / CLINICAL INFORMATION: LEFT LATERAL CHEST PAIN. TECHNIQUE: Axial CT images were obtained through the chest, abdomen, and pelvis after 100 cc of Omnipaque [address] scans at this location are performed using CT dose reduction for ALARA by means of automated exposure control. COMPARISON: 08/09/2020 FINDINGS: CHEST: HEART: No significant abnormality. CORONARY ARTERY CALCIFICATION: None. THORACIC AORTA: No significant abnormality. MEDIASTINUM / KAITLIN: No significant abnormality. PLEURA: No pleural effusion. No pneumothorax. LUNGS: No acute air space or interstitial disease. Bullous disease. There is a 5 mm solid pulmonary nodule within the right middle lobe (series 2 image 75). ADDITIONAL CHEST FINDINGS: None. ABDOMEN/PELVIS: AORTA / ARTERIES: No significant abnormality. IVC / VEINS: No significant abnormality. LYMPH NODES: No significant adenopathy. COLON: No significant abnormality. APPENDIX: No significant abnormality. STOMACH / SMALL BOWEL: No significant abnormality. PERITONEUM: No free fluid. No free air. No fluid collection. LIVER: Hepatic steatosis. No focal lesion. GALLBLADDER: No significant abnormality. BILE DUCTS: No significant abnormality. PANCREAS: No significant abnormality. SPLEEN: No significant abnormality. ADRENALS: No significant abnormality. RIGHT KIDNEY / URETER: Right renal cyst. No hydronephrosis. LEFT KIDNEY / URETER: No significant abnormality. URINARY BLADDER: No significant abnormality. REPRODUCTIVE ORGANS: No significant abnormality. SKELETAL SYSTEM: Acute nondisplaced fractures of the posterior left ninth and 10th ribs. ADDITIONAL FINDINGS: None. IMPRESSION: 1. Acute nondisplaced fractures of the posterior left ninth and 10th ribs. 2. No acute intra-abdominal or intrapelvic pathology. 3. Single incidental pulmonary nodule(s) in the right middle lobe measuring 5 mm with solid characteristics. Recommendation according to Fleischner Society 2017 Guidelines: Low Risk Patient: No routine follow-up; High Risk Patient: Optional CT at 12 months. Signer Name: Naresh Chavez DO Signed: 11/08/2021 12:53 AM Workstation Name: [id number] Transcribed By: AUDIE Dictated By: NARESH CHAVEZ DO Electronically Authenticated By: NARESH CHAVEZ DO Signed Date/Time: 11/08/21 0053 DD/ 0046 TD/TT: [facility] [address] [place] [address] XRay Report Signed Patient: LENO FIGUEROA MR#: [id number] : 1975 Acct:[id number] Age/Sex: 46 / M ADM Date: 11/07/21 Loc: ED Attending Dr: Ordering Physician: ED MD DEB Date of Service: 11/07/21 Procedure(s): XR chest routine 2V Accession Number(s): [id number] cc: ED MD DEB Fluoro Time In Minutes: CHEST 2 VIEWS INDICATION / CLINICAL INFORMATION: chest pain. COMPARISON: 03/21/2021 FINDINGS: SUPPORT DEVICES: None. HEART / MEDIASTINUM: No significant abnormality. LUNGS / PLEURA: No significant pulmonary or pleural abnormality. No pneumothorax. ADDITIONAL FINDINGS: Small nodular densities are seen in bilateral lungs IMPRESSION: 1. Small nodular densities in bilateral lungs could represent granulomas hernandez es however if there is a smoking history a baseline CT may be helpful. No acute findings. Signer Name: Samir Curran MD Signed: 11/07/2021 5:21 PM Workstation Name: [id number] Transcribed By: CW Dictated By: MATTHEW CURRAN MD Electronically Authenticated By: MATTHEW CURRAN MD Signed Date/Time: 11/07/211720 DD/ 19 TD/TT: - Medical Decision Making This is a 46-year-old -[place] male with no past medical history presents to the ED with complaint of acute onset persistent left lateral rib pain and chest wall pain with shortness of breath and diffuse abdominal pain for the last 2 weeks. Patient states that the pain is constant and persistent with movement or deep inhalation. In the ED, patient is alert and oriented x3 and is not in any distress. Lab test results were reviewed and are all non actionable except for elevated AST of 288 and ALT of 124. Chest x-ray showed no acute cardiopulmonary abnormalities or pneumonitis except for the finding of small nodular densities in bilateral lungs which could represent granulomas changes however if there is a smoking history a baseline CT may be helpful. No acute findings. Chest CT and abdomen pelvis CT scan with IV contrast showed acute nondisplaced fractures of the posterior left ninth and 10th ribs. There is no acute intra-abdominal or intrapelvic pathology. In addition it also showed single incidental pulmonary nodule(s) in the right middle lobe measuring 5 mm with solid characteristics. Recommendation according to Fleischner Society 2017 Guidelines. The rest of the lab test results are nonactionable. Patient was treated for pain in the ED. On reevaluation, patient's pain is well controlled medication. Patient was discharged home on pain medications and advised to follow-up with his primary care physician in 7 to 10 days for reevaluation. Patient was advised return to the ED immediately if symptoms get worse. - Differential Diagnosis rib fractures; ACS, Pneumonia, Gastroenteritis; Costochondritis Critical care attestation.: If time is entered above; I have spent that time in minutes in the direct care of this critically ill patient, excluding procedure time. ED Disposition Clinical Impression: Multiple fractures of ribs, left side, initial encounter for closed fracture, Shortness of breath, Left-sided chest wall pain Disposition: 01 HOME / SELF CARE / HOMELESS Is pt being admited?: No Does the pt Need Aspirin: No Condition: Stable Instructions: Shortness of Breath, Adult, [id number], Nonspecific Chest Pain, Adult, [id number], Chest Wall Pain, [id number], Rib Fracture, [id number] Additional Instructions: All lab test results were reviewed and are all nonactionable. Chest CT with IV contrast and abdomen pelvis CT scan with IV contrast showed acute nondisplaced fractures of the posterior left ninth and 10th ribs single incidental pulmonary nodule(s) in the right middle lobe measuring 5 mm with solid characteristics. Therefore take medication as needed for pain, drink plenty of fluids and follow-up with your primary care physician in 7 to 10 days for reevaluation. Return to the ED immediately if symptoms get worse. Prescriptions: Ibuprofen [Motrin] 800 mg PO Q8HR PRN #30 tablet PRN Reason: Pain , Severe (7-10) methOCARBAMOL [Robaxin TAB] 750 mg PO Q8H PRN #30 tab PRN Reason: Muscle Spasm traMADoL [Ultram] 50 mg PO Q6HR PRN #12 tablet PRN Reason: Pain Referrals: [facility] [Provider Group] - 7-10 days Forms: Work/School Release Form(ED) Time of Disposition: 01:47 Print Language: [place]
[2021-11-08 02:04] VITALS: BP 152/91
== END 2021-11-08 02:07 | disposition home or self-care (01) ==
LOC: ED 16:45
DX: S22.42XA Multiple fractures of ribs, left side, initial encounter for closed fracture (principal); F17.200 Nicotine dependence, unspecified, uncomplicated; R10.33 Periumbilical pain; Z79.899 Other long term (current) drug therapy; X58.XXXA Exposure to other specified factors, initial encounter; Y93.89 Activity, other specified; Y92.89 Other specified places as the place of occurrence of the external cause; Y99.8 Other external cause status
CPT/HCPCS: 36415; 71046; 71260; 74177; 80053; 84484; 85025; 93005; 96374; 96375; 99285; J1885; J2270; J2405; J3490; Q9967